=== PATIENT | female | born 1980 | race Two or more races ===

== ENCOUNTER 2017-03-14 09:45 | Inpatient (IN) | payer OTHER ==
[~2017-03-14] VITALS: Ht 157.5 cm; Wt 56.2 kg
[~2017-03-14 09:45] MED LIST: DIAZEPAM5 MG PO; FLO4 PO; LEVAQUIN750 MG PO; MOTRIN800 MG PO; NOR10T PO; PANTOPRAZOLE SO40 M1 PO; PYRIDIUM200 MG PO
[2017-03-14 10:34] LABS: UA SPECIFIC GRAVITY >=1.030 (1.005-1.035)
[2017-03-14 10:35] LABS: microscopic required? YES; urine erythrocyte 3+ (NEGATIVE)
[2017-03-14 12:50] LABS: BASOPHIL % 0.3 % (0-2); PLATELET COUNT 220 x10^3mcL (130-400); RED CELL DISTRIBUTION WIDTH 13.3 % (11.5-14.5)
[2017-03-14 13:07] LABS: CALCIUM 9.1 mg/dL (8.5-10.1); CARBON DIOXIDE 26.6 mmol/L (21-32); CHLORIDE SERUM 106 mmol/L (98-107); CREATININE SERUM 0.7 mg/dL (0.6-1.0); GFR1 > 60 mL/min; GLUCOSE SERUM 99 mg/dL (74-106); POTASSIUM SERUM 3.9 mmol/L (3.5-5.1); SODIUM SERUM 142 mmol/L (136-145)
[2017-03-14 13:56] VITALS: BP 118/68
[2017-03-14 15:01] LABS: MAGNESIUM 1.8 mg/dL (1.8-2.4); PHOSPHOROUS 4.1 mg/dL (2.5-4.9)
[2017-03-14 15:07] LABS: T3 TOTAL 1.22 ng/mL
[2017-03-14 15:10] LABS: CHOLESTEROL/HDL RATIO 2.1
[2017-03-14 15:31] LABS: FREE T4 1.2 ng/dL (0.76-1.46); FREE THYROXINE INDEX 3.5 ug/dL (1.4-4.5); T4(THYROXINE) 9.8 ug/dL (4.7-13.3)
[2017-03-14 20:46] VITALS: BP 128/60
[2017-03-15 05:29] VITALS: BP 89/44
[2017-03-15 08:43] LABS: BASOPHIL % 0.4 % (0-2); PLATELET COUNT 183 x10^3mcL (130-400); RED CELL DISTRIBUTION WIDTH 13.6 % (11.5-14.5)
[2017-03-15 09:17] VITALS: BP 99/52
[2017-03-15 15:05] VITALS: BP 110/57
[2017-03-15 17:25] VITALS: BP 105/60
[2017-03-15 21:39] VITALS: BP 102/49
[2017-03-16 05:25] VITALS: BP 109/61
[2017-03-16 06:56] LABS: BASOPHIL % 0.7 % (0-2); PLATELET COUNT 164 x10^3mcL (130-400); RED CELL DISTRIBUTION WIDTH 13.6 % (11.5-14.5)
[2017-03-16 10:40] VITALS: BP 140/73
[2017-03-16 13:43] VITALS: BP 135/73
== END 2017-03-16 15:05 | disposition left against medical advice (07) | DRG 669 ==
LOC: ED 09:45 → DU 13:00
PROVIDERS: Emergency Medicine Emergency Medical Services; Urology; ADMIT Family Medicine
PROC: 0T768DZ Dilation of Right Ureter with Intraluminal Device, Via Natural or Artificial Opening Endoscopic (ICD-10-PCS; 2017-03-16)
PROC: 0TC68ZZ Extirpation of Matter from Right Ureter, Via Natural or Artificial Opening Endoscopic (ICD-10-PCS; principal; 2017-03-16 08:00)
DX: N13.2 Hydronephrosis with renal and ureteral calculous obstruction (principal); N17.0 Acute kidney failure with tubular necrosis; R80.9 Proteinuria, unspecified; N39.0 Urinary tract infection, site not specified; D64.9 Anemia, unspecified; Z53.21 Procedure and treatment not carried out due to patient leaving prior to being seen by health care provider; R31.9 Hematuria, unspecified; Z87.442 Personal history of urinary calculi; Z83.3 Family history of diabetes mellitus; Z84.89 Family history of other specified conditions
CPT/HCPCS: 83880; 84439; 94150; C1758; C2625; J0690; J0696; J1170; J1885; J2270; J2405; J2704; J3010; J7030; Q0092; Q9967